=== PATIENT | male | born 1955 | race Caucasian/White ===

== ENCOUNTER 2023-06-02 08:24 | Day surgery (SDC) | payer MEDICARE, OTHER, SELFPAY ==
[2023-06-02 08:26] VITALS: BMI 27.3
[2023-06-02 08:27] VITALS: BP 138/71; PULSE 78; RESP 18; TEMP 36.6; O2SAT 98
--- NOTE | 2023-06-02 09:20 | HO.ANESPROP2 ---
HPI - Anesthesia Eval Consult details Narrative: [facility] Past Medical History Medical History (Updated 06/01/23 @ 07:24 by Roberta Sheikh) Asthma Depression with anxiety Diverticulosis Dysphagia, pharyngoesophageal Family history of colon cancer HTN (hypertension) Hyperlipidemia Hypothyroidism IBS (irritable bowel syndrome) Kidney stones NIDDY (non-insulin dependent diabetes mellitus in young) Pilonidal cyst Family History Family history of problems with anesthesia: No Surgical History Surgical History (Updated 06/01/23 @ 07:23 by Roberta Sheikh) H/O carpal tunnel repair H/O colonoscopy H/O repair of rotator cuff History of elbow surgery Personal history of spine surgery History of Problems with Anesthesia: No Social History Social History Patient Tobacco Use Status: Former Tobacco user Are you DNR?: No Advance Directives: No Advance Directives Information Provided: Yes Meds Allergies Allergy/AdvReac Type Severity Reaction Status Date / Time No Known Allergies Allergy Verified 06/01/23 13:18 Active Medications: Current Medications Lactated Ringer's (Lr) 1,000 mls @ 50 mls/hr IVCONT .Q20H MALVIN Last Admin: 06/02/23 08:44 Dose: 50 mls/hr Sodium Biphosphate/Sodium Phosphate (Sodium Phosphate,Pender-Dibasic 133 Ml Enema) 133 ml MI ONCE PRN PRN Reason: Poor Colonoscopy Prep Results Home Medications Medication Instructions Recorded Confirmed Last Taken Type ProAir HFA 2 puff inhalation Q4H PRN wheeze 06/01/23 06/01/23 Unknown History aripiprazole 1 tab PO DAILY 06/01/23 06/01/23 Unknown History atorvastatin 1 tab PO DAILY 06/01/23 06/01/23 Unknown History levothyroxine 1 tab PO DAILY 06/01/23 06/01/23 Unknown History sertraline 100 mg PO DAILY 06/01/23 06/01/23 Unknown History Exam Exam Date and Time: June 02, 2023 0920 Height,Weight and Vital Signs: Height 5 ft 5.75 in Weight 76.204 kg Last Vital Signs Temp 98 F 06/02/23 08:27 Pulse 78 06/02/23 08:27 Resp 18 06/02/23 08:27 BP 138/71 06/02/23 08:27 Pulse Ox 98 06/02/23 08:27 O2 Del Method Room Air 06/02/23 08:27 Airway Mallampati Class: I TM Dist: >3cm Neck ROM: Full Partial: Upper and Lower Heart: ok Lungs: ok Assessment and Plan Final Anesthetic Review Family History of Problems with Anesthesia: No History of Problems with Anesthesia: No NPO: Yes ASA Class: II Final Preanesthetic Review: No Changes in Pt Med Stat, Meds/Allgs Chart Reviewed, Consent Obtained/Reviewed and Anes Risks/Benef Reviewed Patient Risk: Intermediate Procedure Risk: Intermediate Anesthetic Plan Anesthetic Plan: MAC: and Agree w/ Assess. and Plan Disposition: Standard PACU
[2023-06-02 11:01] VITALS: BP 107/67; PULSE 52; RESP 18; TEMP 36.1; O2SAT 98
--- NOTE | 2023-06-02 11:01 | PM.OP ---
Brief Operative Note Date of Service: 06/02/23 Pre-op diagnosis: Dysphagia, Screening Post-op diagnosis: other (Erosive gastritis and duodenitis, Hiatal hernia, Diverticulosis) Procedure: EGD with biopsies and balloon dilation 18 to 19 to 20mm of EG Junction, Colonoscopy to the cecum and TI Surgeon: Cleveland Duckworth Anesthesia: MAC Was an Web Operations Lead used for this Procedure?: No Estimated blood loss (mL): 2.0 Pathology: other (A. Gastric antrum) Condition: stable Disposition: PACU
[2023-06-02 11:16] VITALS: BP 140/77; PULSE 51; RESP 16; TEMP 36.2; O2SAT 98
--- NOTE | 2023-06-02 11:37 | OP_ITS ---
DATE OF SERVICE: 06/02/2023 SURGEON: Cleveland Duckworth MD INDICATIONS: The patient presents for evaluation of intermittent dysphagia, family history of colon cancer, and colorectal cancer screening. Full consent has been obtained from him for this, including risks of bleeding and perforation. PREOPERATIVE DIAGNOSIS: POSTOPERATIVE DIAGNOSIS: PROCEDURE PERFORMED: Esophagogastroduodenoscopy with biopsies and balloon dilation of gastroesophageal junction and colonoscopy to the cecum and terminal ileum. ESTIMATED BLOOD LOSS: COMPLICATIONS: ANESTHESIA: Monitored anesthesia care. ASSISTANTS: SPECIMENS: PREOPERATIVE DIAGNOSES: Dysphagia and colorectal cancer screening, family history of colon cancer. POSTOPERATIVE DIAGNOSES: Dysphagia and colorectal cancer screening, family history of colon cancer, small hiatal hernia, erosive gastritis, duodenitis, diverticulosis, and internal hemorrhoids. DESCRIPTION OF PROCEDURE: The patient was placed in the left lateral decubitus position. The Olympus video gastroscope was passed in the posterior oropharynx and upper esophagus under direct vision. The scope was passed slowly into the distal esophagus. The gastroesophageal junction appeared at 36 cm. There was some slight erythema, but no evidence of any esophagitis, Trevizo's esophagus, stricture, nor ring. The scope easily entered into the stomach. There was a small hiatal hernia. The scope was advanced to the pylorus, and the duodenum was cannulated to the descending portion. The duodenum including the bulb was carefully inspected. The duodenal bulb was notable for evidence of some erosive duodenitis with some erythema, less than 5 mm erosions, and edema. The scope was withdrawn back in the stomach. The gastric antrum had changes of erosive gastritis as well with associated erythema and edema as well. There was good peristalsis. Biopsies were obtained from the antrum. The scope was retroflexed visualizing the proximal stomach carefully, which appeared normal, without any sign of mass or ulceration. The scope was straightened. The scope was withdrawn back into the esophagus. The gastroesophageal junction appeared patent, but I did use a [employer] incremental balloon to dilate the gastroesophageal junction from 18 mm to 19 mm to 20 mm at the recommended pressure for between 30 and 60 seconds each. Post-dilation, there was no appreciable change in the gastroesophageal junction. The remainder of the esophagus appeared normal. I did not visualize any proximal esophageal rings nor webs. The scope was withdrawn from the patient. He was turned around for the colonoscopy. The digital rectal exam revealed no abnormalities. The Olympus video pediatric colonoscope was entered into the rectum and advanced easily to the cecum. Once in the cecum, I did identify normal-appearing cecal pouch with appendiceal orifice and a normal-appearing ileocecal valve. The terminal ileum was cannulated and appeared normal. The scope was withdrawn back in the colon. The entire cecum and ileocecal valve appeared normal. The scope was slowly withdrawn assessing all mucosal surfaces carefully. Preparation was very good throughout the colon but did require some irrigation and suctioning. I did not visualize any sign of polyps, colitis, or angiodysplasia. There was a mild amount of sigmoid diverticulosis. In the rectum, scope was retroflexed visualizing internal hemorrhoids but no other pathology. The rectal mucosa appeared normal. The scope was straightened and withdrawn from the patient. He tolerated the procedure well and was returned to the recovery area in stable condition. IMPRESSION: 1. Small hiatal hernia. 2. Erosive gastritis. 3. Erosive duodenitis. 4. Diverticulosis. 5. Internal hemorrhoids. PLAN: The results of the biopsies will be checked. If H pylori is present in the gastric biopsies, I would recommend treating that. I shall start him on omeprazole 20 mg daily. He was advised to avoid all aspirin and NSAIDs long-term given the upper endoscopy findings. I would recommend a repeat colonoscopy in 5 years for further screening given the family history of colon cancer. This has been discussed with his . MD RIANA Araya/TON / [id number] MTDD
== END 2023-06-02 11:42 | disposition home or self-care (01) ==
PROVIDERS: PCP Family Medicine; Visit Provider Internal Medicine
PROC: (CPT 43249; principal; 2023-06-02 09:30)
PROC: 0DJD8ZZ Inspection of Lower Intestinal Tract, Via Natural or Artificial Opening Endoscopic (ICD-10-PCS; CPT 45378; 2023-06-02 09:30)
DX: Z12.11 Encounter for screening for malignant neoplasm of colon (principal); Z80.0 Family history of malignant neoplasm of digestive organs; K57.30 Diverticulosis of large intestine without perforation or abscess without bleeding; K64.8 Other hemorrhoids; K58.9 Irritable bowel syndrome, unspecified; R13.14 Dysphagia, pharyngoesophageal phase; K29.60 Other gastritis without bleeding; K29.80 Duodenitis without bleeding; K44.9 Diaphragmatic hernia without obstruction or gangrene; I10 Essential (primary) hypertension; E78.5 Hyperlipidemia, unspecified; J45.909 Unspecified asthma, uncomplicated; F41.8 Other specified anxiety disorders; E11.9 Type 2 diabetes mellitus without complications; E03.9 Hypothyroidism, unspecified; Z79.899 Other long term (current) drug therapy; Z87.891 Personal history of nicotine dependence
CPT/HCPCS: 43249; 43239; G0105; 88305; 88342; C1726; J3010